=== PATIENT | female | born 1985 | race African-American/Black ===

== ENCOUNTER 2019-07-03 04:02 | Emergency (ER) | payer MEDICAID, OTHER ==
[~2019-07-03] VITALS: Ht 172.7 cm; Wt 91.0 kg
[2019-07-03] MEDS ORDERED: IBUPROFEN 600MG TABLET PO ONE (05:00)
[2019-07-03 05:26] VITALS: BP 121/72
== END 2019-07-03 07:14 | disposition home or self-care (01) ==
LOC: ER 04:02
DX: M25.552 Pain in left hip (principal)
CPT/HCPCS: 73502; 81025; 99283